=== PATIENT | female | born 1990 | race Caucasian/White ===

== ENCOUNTER 2021-10-27 10:18 | Emergency (ER) | payer SELFPAY ==
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
[2021-10-27] MEDS ORDERED: CYCLOBENZAPRINE 10 MG TAB ONE (11:21)
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
[2021-10-27 11:53] VITALS: BP 137/87; O2SAT 97
== END 2021-10-27 11:42 | disposition home or self-care (01) ==
LOC: ER 10:18
DX: S29.012A Strain of muscle and tendon of back wall of thorax, initial encounter (principal); V43.62XA Car passenger injured in collision with other type car in traffic accident, initial encounter; M67.432 Ganglion, left wrist
CPT/HCPCS: 71046; 99283